=== PATIENT | female | born 1995 | race Caucasian/White ===

== ENCOUNTER 2021-01-05 08:47 | Outpatient (CLI) | payer BC, SELFPAY ==
[2021-01-05 09:39] LABS: Beta HCG Quantitative < 2.39 mIU/ML
== END 2021-01-05 08:48 | disposition home or self-care (01) ==
PROVIDERS: Visit Provider Nurse Practitioner Obstetrics & Gynecology
DX: Z30.9 Encounter for contraceptive management, unspecified (principal)
CPT/HCPCS: 36415; 84702

== ENCOUNTER 2022-01-19 15:41 | Emergency (ER) | payer OTHER, SELFPAY ==
--- NOTE | 2022-01-19 15:46 | ED.URI ---
HPI - URI/Sore Throat General Chief Complaint: Upper Respiratory Infection Stated Complaint: fever headache fatigue Time Seen by Provider: 01/19/22 15:46 Source: patient and RN notes reviewed History of Present Illness HPI Narrative: Patient is a 26-year-old female who presents the urgent care with complaints of fever, headache and fatigue. Patient states that started yesterday and she had a negative at home COVID test this morning. Patient has a history of UTIs and also was complaining of some pressure wondering if it is related to a urinary tract infection. Patient states she took aspirin. Denies of any vomiting. Denies of any ill contacts. No other acute complaints. No acute distress noted. Patient aware of the plan of care. Some parts of this dictation were generated by voice recognition software and may contain typographical and/or grammatical inaccuracies. Related Data Allergies Allergy/AdvReac Type Severity Reaction Status Date / Time No Known Allergies Allergy Verified 01/19/22 16:08 Review of Systems Review of Systems: CONSTITUTIONAL: Reports a fever and fatigue EYES: Denies visual changes, redness, or discharge. ENT: Denies rhinorrhea, congestion, sore throat, or otalgia. CARDIOVASCULAR: Denies chest pain, palpitations, or edema. RESPIRATORY: Denies cough or dyspnea. GASTROINTESTINAL: Denies abdominal pain, nausea, vomiting, or diarrhea. GENITOURINARY: Denies dysuria or hematuria. SKIN: Denies rash or itching. MUSCULOSKELETAL: Denies back pain, joint pain, or myalgia. NEUROLOGIC: Reports of headache All other systems reviewed are negative, except as documented in HPI. PMFSH Comments At the time of my signature, I reviewed and agree with the nursing past medical, surgical, social, and family history. There is no relevant family history pertinent to the patient complaint. Exam Narrative: GENERAL: This is a well-nourished, well-developed patient, in no apparent distress. HEAD: normocephalic, atraumatic. EYES: PERRL. Sclera clear/white. Vision is grossly intact. EARS: External ears normal, auditory canals clear and without drainage, TMs normal without perforation. Hearing grossly intact. NOSE: External nose normal with no obvious nasal discharge, nares without redness, no rhinorrhea. THROAT: Mucous membranes moist, posterior pharynx clear. NECK: Neck supple, non-tender without lymphadenopathy, masses or thyromegaly. CARDIOVASCULAR: Regular rate and rhythm without murmurs, gallops, or rubs. RESPIRATORY: Clear to auscultation. Breath sounds equal bilaterally. No wheezes, rales, or rhonchi. GASTROINTESTINAL: Abdomen soft, mild suprapubic tenderness, nondistended. Bowel sounds are active. \ SKIN: warm, intact with no suspicious lesions or rash, good texture and turgor. NEURO: awake, alert, and oriented to person, place and time. There were no obvious focal neurologic abnormalities. EXTREMITIES: No clubbing, cyanosis, or edema. BACK: Negative bilateral CVA tenderness Course Course Level of Care: Express Care Visit Vital Signs Vital signs: Vital Signs Temperature 100.2 F H 01/19/22 15:47 Pulse Rate 99 01/19/22 15:47 Respiratory Rate 20 01/19/22 15:47 Blood Pressure 132/72 01/19/22 15:47 Pulse Oximetry 97 01/19/22 15:47 Oxygen Delivery Room Air 01/19/22 15:47 Temperature 100.2 F H 01/19/22 15:47 Pulse Rate 99 01/19/22 15:47 Respiratory Rate 20 01/19/22 15:47 Blood Pressure 132/72 01/19/22 15:47 Pulse Oximetry 97 01/19/22 15:47 Oxygen Delivery Room Air 01/19/22 15:47 Reviewed MDM - URI/Sore Throat MDM Narrative Medical decision making narrative: Reviewed lab results with the patient. She is aware that urine analysis is not indicative of a urinary tract infection. Flu swab was also negative. Educated patient on PCR we will call once her PCR COVID results are obtained. [facility] and you tend to get the results much sooner
[2022-01-19 15:47] VITALS: BP 132/72; PULSE 99; RESP 20; TEMP 37.9; O2SAT 97
[2022-01-19 21:29] LABS: SARS-CoV-2 RNA PCR Negative
== END 2022-01-19 16:52 | disposition home or self-care (01) ==
PROVIDERS: Emergency Provider Nurse Practitioner Family
DX: B34.9 Viral infection, unspecified (principal); Z20.822 Contact with and (suspected) exposure to COVID-19
CPT/HCPCS: 81003; 87804; 99213; C9803; G0463; U0003; U0005